=== PATIENT | female | born 1975 | race African-American/Black ===

== ENCOUNTER 2025-04-28 07:38 | Emergency (ER) | payer MEDICAID, OTHER ==
[~2025-04-28] VITALS: Ht 170.2 cm; Wt 136.0 kg
[2025-04-28 07:41] VITALS: O2SAT 99
[2025-04-28] MEDS: MORPHINE SULFATE 4 MG/ML INJ (FOR IV/IM USE) IV ONE (08:20)
[2025-04-28 08:28] LABS: BASOPHILS % 1.5 % (0.0-2.0); EOSINOPHILS % 1.2 % (0.0-5.0); HEMATOCRIT. 40.0 % (36.0-48.0); HEMOGLOBIN. 12.5 g/dL (12.0-16.0); LYMPHOCYTES % 42.3 % (20.0-50.0); MEAN PLATELET VOLUME 8.1 fl (7.4-10.4); MONOCYTES % 7.0 % (2.0-8.0); NEUTROPHILS % 48.0 % (40.0-76.0); PLATELET 294 x1000/uL (130-400); RED BLOOD CELL COUNT 5.60 mill/uL (4.2-5.4); RED CELL DISTRIBUTION WIDTH 16.4 % (11.6-14.6)
[2025-04-28] MEDS: ONDANSETRON HCL 4MG/2ML INJ IV ONE (08:34)
[2025-04-28 08:43] LABS: CREATININE 0.8 mg/dL (0.6-1.0); UREA NITROGEN BLOOD 9 mg/dL (9-23)
[2025-04-28 08:44] LABS: ASPARTATE AMINOTRANSFERASE 18 IU/L (<34)
[2025-04-28 08:45] LABS: BILIRUBIN DIRECT 0.1 mg/dL (<=3.0); BILIRUBIN TOTAL 0.6 mg/dL (0.1-1.0); PROTEIN TOTAL 7.1 g/dL (6.0-8.3)
[2025-04-28] MEDS: HYDROCODONE/ACETAMINOPHEN 5/325MG TABLET PO STA (10:20)
[2025-04-28] MEDS ORDERED: OXYC-100 MT (10:29)
[2025-04-28] MEDS ORDERED: IBUP-2030 MT (10:29)
[2025-04-28 10:40] VITALS: BP 165/98; PULSE 73; RESP 17; TEMP 36.4; O2SAT 99
== END 2025-04-28 10:52 | disposition home or self-care (01) ==
LOC: ER 07:38
DX: S76.0 Injury of muscle, fascia and tendon of hip (principal); W22.8XXA Striking against or struck by other objects, initial encounter; Y93.89 Activity, other specified; Y92.410 Unspecified street and highway as the place of occurrence of the external cause; Y99.8 Other external cause status
CPT/HCPCS: 80076; 80048; 85025; 36415; 71045; 72040; 96374; 99284; J2270; Z7610 ×2; A4606